=== PATIENT | male | born 1980 | race Caucasian/White ===

== ENCOUNTER 2019-04-08 13:12 | Emergency (ER) | payer MEDICAID ==
[~2019-04-08] VITALS: Ht 172.7 cm; Wt 76.8 kg
[~2019-04-08 13:12] MED LIST: ACAM333T7 PO; HYDR50CA2 PO; NICO-487 TD; SERT50TA28 PO; TRAZ50TA66 PO
[2019-04-08 13:31] VITALS: BP 134/99
--- NOTE | 2019-04-08 13:51 | NUR ---
this is a 38 year old male. here because he states he is depressed and states he has no hope. [place] screen indicates high risk as pt has had si with a plan in the last 3 months. he was seen previously and tx for these thoughts. provider made aware of score.
[2019-04-08 13:58] LABS: BASOPHILS # (AUTO) 0.02 x10^3/uL (0-0.1); BASOPHILS % (AUTO) 0 % (0-1); EOSINOPHILS # (AUTO) 0.36 x10^3/uL (0-0.4); EOSINOPHILS % (AUTO) 3 % (1-7); LYMPHOCYTES # (AUTO) 1.39 x10^3/uL (1-3.4); LYMPHOCYTES % (AUTO) 12 % (22-44); MD NO; MEAN CORPUSCULAR HEMOGLOBIN 29.2 pg (27.5-34.5); MEAN CORPUSCULAR VOLUME 88.4 fL (81-97); MEAN PLATELET VOLUME 7.1 fL (7.4-10.4); MONOCYTES # (AUTO) 0.37 x10^3/uL (0.2-0.8); MONOCYTES % (AUTO) 3 % (2-9); NEUTROPHILS # (AUTO) 9.25 x10^3/uL (1.8-6.8); NEUTROPHILS % (AUTO) 81 % (42-75); PLATELET COUNT 361 x10^3/uL (130-400); RED BLOOD COUNT 5.23 x10^6/uL (4.38-5.82); RED CELL DISTRIBUTION WIDTH 13.6 % (9.4-14.8)
[2019-04-08 14:11] LABS: ALBUMIN 3.4 g/dL (3.4-5.0); ANION GAP 6 mmol/L (5-15); CALCIUM 9.3 mg/dL (8.5-10.1); CHLORIDE 107 mmol/L (98-107); CREATININE 1.02 mg/dL (0.7-1.3)
[2019-04-08 14:14] LABS: SALICYLATE LEVEL 2.6 mg/dL (2.8-20.0)
--- NOTE | 2019-04-08 14:53 | NUR ---
Bedside report from Kunal VALDES, pt care assumed at this time. Pt in bed, LAVELL Ruvalcaba at bedside to evaluate pt.
== END 2019-04-08 16:22 | disposition home or self-care (01) ==
LOC: ED 16:16
DX: F15.951 Other stimulant use, unspecified with stimulant-induced psychotic disorder with hallucinations (principal); F17.200 Nicotine dependence, unspecified, uncomplicated; F32.9 Major depressive disorder, single episode, unspecified; R44.1 Visual hallucinations
CPT/HCPCS: 36415; 80048; 80307; 82040; 85025; 99283

== ENCOUNTER 2019-12-01 08:32 | Inpatient (IN) | payer MEDICAID ==
[~2019-12-01] VITALS: Ht 172.7 cm; Wt 80.9 kg
[2019-12-01] MEDS ORDERED: DOCUSATE 100 MG CAPSULE PO PRN (09:00)
[2019-12-01] MEDS ORDERED: POLYETHYLENE GLYCOL 17 GM PACKET PO PRN (09:00)
[2019-12-01] MEDS ORDERED: ACETAMINOPHEN 325 MG TABLET PO PRN (09:00)
[2019-12-01] MEDS ORDERED: BISACODYL 10 MG SUPP PR PRN (09:00)
[2019-12-01] MEDS ORDERED: ONDANSETRON ODT 4 MG PO PRN (09:00)
[2019-12-01 14:59] VITALS: BP 142/88
[2019-12-01] MEDS ORDERED: PLEASE ENTER HEIGHT AND WEIGHT MC SCH (15:00)
[2019-12-01] MEDS: NICOTINE 21 MG/24 HR PATCH.TD24 TD SCH (15:02)
[2019-12-01] MEDS ORDERED: LORazepam 1MG TABLET PO PRN (15:30)
[2019-12-01] MEDS: ACAMPROSATE 333 MG TABLET.DR PO SCH ×2 (15:54→20:01)
[2019-12-01] MEDS ORDERED: ALBUTEROL HFA 90 MCG/SPRAY INH PRN (16:30)
[2019-12-01 20:00] VITALS: BP 136/68
[2019-12-02 07:34] VITALS: BP 137/91
[2019-12-02 08:14] LABS: BASOPHILS # (AUTO) 0.04 x10^3/uL (0-0.1); BASOPHILS % (AUTO) 1 % (0-1); EOSINOPHILS # (AUTO) 0.39 x10^3/uL (0-0.4); EOSINOPHILS % (AUTO) 5 % (1-7); LYMPHOCYTES % (AUTO) 30 % (22-44); MD NO; MEAN CORPUSCULAR HEMOGLOBIN 30.1 pg (27.5-34.5); MEAN CORPUSCULAR HGB CONC 32.9 g/dL (33.2-36.2); MEAN CORPUSCULAR VOLUME 91.5 fL (81-97); MEAN PLATELET VOLUME 8.6 fL (7.4-10.4); MONOCYTES # (AUTO) 0.38 x10^3/uL (0.2-0.8); MONOCYTES % (AUTO) 5 % (2-9); NEUTROPHILS # (AUTO) 4.88 x10^3/uL (1.8-6.8); NEUTROPHILS % (AUTO) 60 % (42-75); PLATELET COUNT 283 x10^3/uL (130-400); RED CELL DISTRIBUTION WIDTH 12.8 % (9.4-14.8)
[2019-12-02 08:25] LABS: ANION GAP 9 mmol/L (5-15); CALCIUM 8.5 mg/dL (8.5-10.1); CHLORIDE 105 mmol/L (98-107); CHOLESTEROL, TOTAL 202 mg/dL (140-239); TRIGLYCERIDES 231 mg/dL (50-200); VLDL CHOLESTEROL 46 mg/dL (0-25)
[2019-12-02 08:52] LABS: CHOL/HDL RATIO 4.3; FREE T4 (FREE THYROXINE) 1.02 ng/dL (0.76-1.46); HDL CHOL % 23 % (26-37); HDL CHOLESTEROL (DIRECT) 47 mg/dL (40-60); LDL CHOLESTEROL,CALCULATED 109 mg/dL (54-169); LDL/HDL RATIO 2.3 (0.5-3.0)
[2019-12-02] MEDS: ACAMPROSATE 333 MG TABLET.DR PO SCH ×3 (09:02→20:31)
[2019-12-02] MEDS: NICOTINE 21 MG/24 HR PATCH.TD24 TD SCH (09:41)
[2019-12-02] MEDS: BUPROPION SR 150 MG TABLET PO SCH (13:23)
[2019-12-02] MEDS: DIVALPROEX 500 MG TABLET.DR PO SCH ×2 (13:23→20:31)
[2019-12-02 19:59] VITALS: BP 145/92
[2019-12-03 07:23] VITALS: BP 115/77
[2019-12-03] MEDS: BUPROPION SR 150 MG TABLET PO SCH (08:31)
[2019-12-03] MEDS: DIVALPROEX 500 MG TABLET.DR PO SCH ×2 (08:31→20:03)
[2019-12-03] MEDS: ACAMPROSATE 333 MG TABLET.DR PO SCH ×4 (08:31→21:00)
[2019-12-03] MEDS: NICOTINE 21 MG/24 HR PATCH.TD24 TD SCH (08:33)
[2019-12-03 19:03] VITALS: BP 153/101
[2019-12-04 07:59] VITALS: BP 132/90
[2019-12-04] MEDS: NICOTINE 21 MG/24 HR PATCH.TD24 TD SCH (08:29)
[2019-12-04] MEDS: DIVALPROEX 500 MG TABLET.DR PO SCH (08:30)
[2019-12-04] MEDS: ACAMPROSATE 333 MG TABLET.DR PO SCH (08:30)
[2019-12-04] MEDS: BUPROPION SR 150 MG TABLET PO SCH (08:30)
[2019-12-04] MEDS ORDERED: BUPR150T73 PO (13:45)
== END 2019-12-04 14:00 | disposition home or self-care (01) | DRG 812 ==
LOC: 3E 14:54
PROVIDERS: ADMIT Psychiatry & Neurology Psychosomatic Medicine; ATTEND Psychiatry & Neurology Psychosomatic Medicine
DX: T43.222A Poisoning by selective serotonin reuptake inhibitors, intentional self-harm, initial encounter (principal); F12.10 Cannabis abuse, uncomplicated; F11.20 Opioid dependence, uncomplicated; F41.1 Generalized anxiety disorder; F31.30 Bipolar disorder, current episode depressed, mild or moderate severity, unspecified; J45.909 Unspecified asthma, uncomplicated; F10.20 Alcohol dependence, uncomplicated; F15.20 Other stimulant dependence, uncomplicated; F17.210 Nicotine dependence, cigarettes, uncomplicated; J18.9 Pneumonia, unspecified organism; Z86.711 Personal history of pulmonary embolism; Z91.5 Personal history of self-harm; Y90.9 Presence of alcohol in blood, level not specified; Y92.89 Other specified places as the place of occurrence of the external cause
CPT/HCPCS: 36415; 80048; 80061; 82140; 82607; 84439; 84443; 85025; 86592; 86780; 93005; 92523-GN